=== PATIENT | female | born 1940 | race Caucasian/White ===

== ENCOUNTER 2016-09-23 10:29 | Observation (INO) | payer MEDICARE ==
[~2016-09-23] VITALS: Ht 157.5 cm; Wt 60.0 kg
--- NOTE | 2016-09-23 10:29 | NUR ---
PT TO ROOM 15 VIA STRETCHER BY EMS.
[2016-09-23] MEDS ORDERED: LOSARTAN POT50 MG PO (10:49)
[2016-09-23] MEDS ORDERED: BETAPACE80 MG PO (10:49)
[2016-09-23] MEDS ORDERED: PRAVASTATIN80 MG PO (10:50)
[2016-09-23] MEDS ORDERED: LEVOTHYROXIN25 MC1 PO (10:50)
[2016-09-23] MEDS ORDERED: OMEPRAZOLE10 MG PO (10:51)
[2016-09-23] MEDS ORDERED: METFORMIN500 M2 PO (10:51)
[2016-09-23] MEDS ORDERED: COUMADIN5 MG PO (10:52)
[2016-09-23] MEDS ORDERED: ASPIRIN CHEWABL81 MG PO (10:52)
[2016-09-23] MEDS ORDERED: MAGNESIUM400 MG PO (10:54)
[2016-09-23] MEDS ORDERED: CALCIUM600 M1 PO (10:54)
[2016-09-23] MEDS ORDERED: VITAMIN B-12500 MCG PO (10:55)
[2016-09-23] MEDS ORDERED: MULTI VIT PO (10:55)
[2016-09-23 11:10] LABS: HEMATOCRIT 40.9 % (37.0-47.0); HEMOGLOBIN 12.8 g/dl (12.0-16.0); IMMATURE GRANULOCYTES 0.4 % (0.0-1.0); MEAN CELL VOLUME 91.3 fL CALC (80.0-100.0); MEAN CORPUSCULAR HGB 28.6 pG CALC (26.0-32.0); MEAN CORPUSCULAR HGB CONC 31.3 g/L CALC (32.0-36.0); NEUT# 3.74 thou/uL (2.00-7.15); RED BLOOD COUNT 4.48 mill/uL (4.20-5.60); RED CELL DISTRI WIDTH 15.3 % (11.5-15.5)
--- NOTE | 2016-09-23 11:30 | NUR ---
PATIENT RESTING AWAITING LAB AND RADIOLOGY RESULTS PATIENT DENIES ANY PAIN AT THIS TIME. PATIENT UNABLE TO PROVIDE A URINE SAMPLE
[2016-09-23 11:33] LABS: ALBUMIN 3.9 g/dL (3.2-5.0); ALKALINE PHOSPHATASE 92 u/l (38-126); ANION GAP 19 (6-22 (CALC)); BILIRUBIN, TOTAL 0.4 mg/dL (0.0-1.4); BUN 19 mg/dL (8-23); BUN/CREATININE RATIO 16 (12-20 (CALC)); CALCIUM 9.1 mg/dL (8.4-10.2); CARBON DIOXIDE 22 mmol/l (22-30); CHLORIDE 100 mmol/l (95-108); CREATININE 1.2 mg/dL (0.5-1.0); GFR 44 ML/MIN (>=60 (CALC)); GFR FOR AFR.AMER. 53 ML/MIN (>=60 (CALC)); GLUCOSE 161 mg/dL (82-115); POTASSIUM 4.5 mmol/l (3.5-5.1); SGOT/AST 40 u/l (9-36); SGPT/ALT 33 u/l (11-66); SODIUM 136 mmol/l (137-146)
[2016-09-23 11:52] LABS: MYOGLOBIN 39 ng/mL (0 - 62)
[2016-09-23 12:37] LABS: INTERNATIONAL NORMALIZED RATIO 2.1 RATIO (0.7-1.3); PROTHROMBIN TIME 23.6 SECONDS (9.0-12.5)
--- NOTE | 2016-09-23 12:39 | NUR ---
PATIENT RESTING AWAITNG LAB AND RADIOLOGY RESULTS PATIENT DENIES ANY PAIN AT THIS TIME
--- NOTE | 2016-09-23 13:30 | NUR ---
PATIENT RESTING AWAITNG ROOM ASSIGNMENT PATIENT DENIES ANY PAIN AT THIS TIME
--- NOTE | 2016-09-23 14:08 | NUR ---
REPORT CALLED TO [facility] AND PATIENT TRANSPORTED
--- NOTE | 2016-09-23 14:20 | NUR ---
PT ARRIVED TO FLOOR VIA STRETCHER ACCOMPANIED BY [facility]. PT DENIES PAIN. NO DIZZINESS. AMBULATED TO RESTROOM. TOLERATED ACTIVITY WELL. REPORTING OF CONCERNS ENCOURAGED. PT ORIENTED TO ROOM AND EQUIPMENT. PLAN OF CARE DISCUSSED. CALL LIGHT REVIEWED AND IN REACH. FALL PRECAUTIONS REINFORCED. PT STATE UNDERSTANDING.
[2016-09-23 14:30] VITALS: BP 143/89
[2016-09-23 16:00] VITALS: BP 148/88
--- NOTE | 2016-09-23 17:25 | NUR ---
PT SITTING UPRIGHT IN BED. AT BEDSIDE. DENIES PAIN. NO DIZZINESS. REPORTING OF SYMPTOMS AND CONCERNS ENCOURAGED. PT STATES UNDERSTANDING.
[2016-09-23 19:05] VITALS: BP 137/78
--- NOTE | 2016-09-23 19:19 | NUR ---
BEDSIDE REPORT RECEIVED FROM [facility]. PT UP TO BATHROOM AT THIS TIME. DENIES PAIN AND SHORTNESS OF BREATH. NO DISTRESS NOTED. PLAN OF CARE DISCUSSED. ENCOURAGED TO VERBALIZE CONERNS. PT STATES UNDERSTANDING. SAFETY MEASURES IN PLACE. CALL LIGHT SYSTEM REVIEWED AND IN REACH.
--- NOTE | 2016-09-23 19:19 | NUR ---
BEDSIDE REPORT RECEIVED FROM [facility]. PT UP TO BATHROOM AT THIS TIME. DENIES PAIN AND SHORTNESS OF BREATH. NO DISTRESS NOTED. PLAN OF CARE DISCUSSED. ENCOURAGED TO VERBALIZE CONCERNS. PT STATES UNDERSTANDING. SAFETY MEASURES IN PLACE. CALL LIGHT SYSTEM REVIEWED AND IN REACH.
[2016-09-23 20:44] LABS: URINE BILIRUBIN - DIPSTICK NEGATIVE (NEGATIVE); URINE BLOOD DIPSTICK NEGATIVE (NEGATIVE); URINE CLARITY CLEAR; URINE COLOR YELLOW; URINE GLUCOSE - DIPSTICK NEGATIVE (NEGATIVE); URINE KETONE TRACE mg/dL (NEGATIVE); URINE LEUK ESTERASE TRACE (NEGATIVE); URINE NITRITE - DIPSTICK NEGATIVE (Negative); URINE PH 5.5 (4.5-8.0); URINE PROTEIN - DIPSTICK NEGATIVE (NEG-TRACE); URINE UROBILINOGEN - DIPSTICK 0.2 E.U./dL (0.2)
[2016-09-23 23:10] VITALS: BP 129/79
--- NOTE | 2016-09-24 | NUR ---
PT RESTING IN BED SUPINE. UP AD LANDRY TO VOID. DENIES PAIN. RESPIRATIONS EVEN AND UNLABORED. NO NEEDS AT THIS TIME. IV SITE LOOKS HEALTHY. SAFETY MEASURES IN PLACE. CALL LIGHT WITHIN REACH.
--- NOTE | 2016-09-24 03:59 | NUR ---
PT ASLEEP AT THIS TIME. NO SIGNS OF DISTRESS NOTED AND RESPIRATIONS ARE EVEN AND UNLABORED. IV SITE IS NOW SALINE LOCKED AND IS PATENT. SAFETY MEASURES REMAIN IN PLACE. CALL LIGHT WITHIN REACH.
[2016-09-24 04:59] VITALS: BP 136/80
[2016-09-24 06:20] LABS: HEMATOCRIT 38.7 % (37.0-47.0); HEMOGLOBIN 12.2 g/dl (12.0-16.0); IMMATURE GRANULOCYTES 0.4 % (0.0-1.0); MEAN CELL VOLUME 89.6 fL CALC (80.0-100.0); MEAN CORPUSCULAR HGB 28.2 pG CALC (26.0-32.0); MEAN CORPUSCULAR HGB CONC 31.5 g/L CALC (32.0-36.0); NEUT# 4.98 thou/uL (2.00-7.15); RED BLOOD COUNT 4.32 mill/uL (4.20-5.60)
[2016-09-24 06:37] LABS: INTERNATIONAL NORMALIZED RATIO 2.3 RATIO (0.7-1.3); PROTHROMBIN TIME 27.1 SECONDS (9.0-12.5)
[2016-09-24 06:38] LABS: ANION GAP 14 (6-22 (CALC)); BUN 14 mg/dL (8-23); BUN/CREATININE RATIO 14 (12-20 (CALC)); CALCIUM 8.7 mg/dL (8.4-10.2); CARBON DIOXIDE 25 mmol/l (22-30); CHLORIDE 103 mmol/l (95-108); GFR 54 ML/MIN (>=60 (CALC)); GFR FOR AFR.AMER. > 60 ML/MIN (>=60 (CALC)); GLUCOSE 107 mg/dL (82-115); POTASSIUM 4.6 mmol/l (3.5-5.1); SODIUM 137 mmol/l (137-146)
--- NOTE | 2016-09-24 07:24 | NUR ---
BEDSIDE REPORT RECEIVED FROM MIRELLA KMIBALL. PT DENIES PAIN. NO DIZZINESS REPORTED. FALL PRECAUTIONS REINFORCED. PLAN OF CARE DISCUSSED. REPORTING OF CONCERNS ENCOURAGED. CALL LIGHT REVIEWED AND IN REACH. PT STATES UDNERSTANDING.
[2016-09-24 08:02] VITALS: BP 163/86
[2016-09-24 11:05] VITALS: BP 119/69
--- NOTE | 2016-09-24 12:55 | NUR ---
Discharge instructions given. Patient verbalizes understanding of same. Discharged in stable condition via Wheelchair to Home with spouse. All belongings sent with pt.
== END 2016-09-24 13:00 | disposition home or self-care (01) ==
LOC: ENPENDDIS → ED 10:29 → ED-I 12:32 → ED 13:05 → MS2 13:06
PROVIDERS: Emergency Medicine; ADMIT Internal Medicine; ATTEND Internal Medicine
DX: R55 Syncope and collapse (principal); N17.9 Acute kidney failure, unspecified; E86.0 Dehydration; I48.0 Paroxysmal atrial fibrillation; I10 Essential (primary) hypertension; E11.9 Type 2 diabetes mellitus without complications; E03.9 Hypothyroidism, unspecified; R11.2 Nausea with vomiting, unspecified; R53.1 Weakness; Z79.01 Long term (current) use of anticoagulants; Z79.84 Long term (current) use of oral hypoglycemic drugs

== ENCOUNTER 2016-10-17 16:23 | Emergency (ER) | payer MEDICARE ==
[~2016-10-17] VITALS: Ht 157.5 cm; Wt 71.0 kg
[~2016-10-17 16:23] MED LIST: ASPIRIN CHEWABL81 MG PO; BETAPACE80 MG PO; CALCIUM600 M1 PO; COUMADIN5 MG PO; LEVOTHYROXIN25 MC1 PO; LOSARTAN POT50 MG PO; MAGNESIUM400 MG PO; METFORMIN500 M2 PO; MULTI VIT PO; OMEPRAZOLE10 MG PO; PRAVASTATIN80 MG PO; VITAMIN B-12500 MCG PO
[2016-10-17] MEDS ORDERED: MECLIZINE25 MG PO (16:41)
[2016-10-17 17:20] LABS: HEMATOCRIT 38.7 % (37.0-47.0); HEMOGLOBIN 12.2 g/dl (12.0-16.0); IMMATURE GRANULOCYTES 0.3 % (0.0-1.0); MEAN CELL VOLUME 92.6 fL CALC (80.0-100.0); MEAN CORPUSCULAR HGB 29.2 pG CALC (26.0-32.0); MEAN CORPUSCULAR HGB CONC 31.5 g/L CALC (32.0-36.0); NEUT# 3.91 thou/uL (2.00-7.15); RED BLOOD COUNT 4.18 mill/uL (4.20-5.60); RED CELL DISTRI WIDTH 15.1 % (11.5-15.5)
[2016-10-17 17:30] LABS: ALBUMIN 4.2 g/dL (3.2-5.0); BILIRUBIN, TOTAL 0.3 mg/dL (0.0-1.4); CALCIUM 9.8 mg/dL (8.4-10.2); CREATININE 1.3 mg/dL (0.5-1.0); POTASSIUM 4.5 mmol/l (3.5-5.1); TOTAL PROTEIN 7.7 g/dL (6.3-8.2)
[2016-10-17 17:48] LABS: INTERNATIONAL NORMALIZED RATIO 2.2 RATIO (0.7-1.3); PROTHROMBIN TIME 24.8 SECONDS (9.0-12.5)
[2016-10-17] MEDS ORDERED: ZOFRAN ODT4 MG PO (17:54)
[2016-10-17] MEDS ORDERED: LORTAB 5-325 MG1 TAB PO (17:54)
[2016-10-17 19:01] VITALS: BP 146/77
== END 2016-10-17 19:18 | disposition home or self-care (01) ==
LOC: ED 16:23
PROVIDERS: Emergency Medicine
PROC: 2W6 Placement, Anatomical Regions, Traction (ICD-10-PCS; principal; 2016-10-17)
PROC: 2W3DX1Z Immobilization of Left Lower Arm using Splint (ICD-10-PCS; 2016-10-17)
DX: S52.532A Colles' fracture of left radius, initial encounter for closed fracture (principal); S52.602A Unspecified fracture of lower end of left ulna, initial encounter for closed fracture; W18.39XA Other fall on same level, initial encounter; Y92.008 Other place in unspecified non-institutional (private) residence as the place of occurrence of the external cause

== ENCOUNTER 2017-06-26 04:26 | Emergency (ER) | payer MEDICARE ==
[~2017-06-26] VITALS: Ht 165.1 cm; Wt 72.7 kg
[~2017-06-26 04:26] MED LIST changes: +BETAPACE120 MG PO; -BETAPACE80 MG PO; +LORTAB 5-325 MG1 TAB PO; +MECLIZINE25 MG PO; +ZOFRAN ODT4 MG PO
[2017-06-26] MEDS ORDERED: WARFARIN5 MG PO (04:42)
[2017-06-26 04:56] LABS: HEMATOCRIT 41.9 % (37.0-47.0); HEMOGLOBIN 13.7 g/dl (12.0-16.0); IMMATURE GRANULOCYTES 0.2 % (0.0-1.0); MEAN CELL VOLUME 93.9 fL CALC (80.0-100.0); MEAN CORPUSCULAR HGB 30.7 pG CALC (26.0-32.0); MEAN CORPUSCULAR HGB CONC 32.7 g/L CALC (32.0-36.0); NEUT# 7.86 thou/uL (2.00-7.15); RED BLOOD COUNT 4.46 mill/uL (4.20-5.60); RED CELL DISTRI WIDTH 14.8 % (11.5-15.5)
[2017-06-26 05:03] LABS: ALBUMIN 4.2 g/dL (3.2-5.0); BILIRUBIN, TOTAL 0.6 mg/dL (0.0-1.4); CALCIUM 9.4 mg/dL (8.4-10.2); CREATININE 1.2 mg/dL (0.5-1.0); POTASSIUM 4.8 mmol/l (3.5-5.1); TOTAL PROTEIN 7.3 g/dL (6.3-8.2)
[2017-06-26 05:08] LABS: INTERNATIONAL NORMALIZED RATIO 3.4 RATIO (0.7-1.3); PROTHROMBIN TIME 39.2 SECONDS (9.0-12.5)
[2017-06-26 11:10] VITALS: BP 141/73
== END 2017-06-26 11:10 | disposition short-term general hospital (02) ==
LOC: ED 04:26
PROVIDERS: Emergency Medicine
DX: I47.1 Supraventricular tachycardia (principal); I48.91 Unspecified atrial fibrillation; I10 Essential (primary) hypertension; E11.9 Type 2 diabetes mellitus without complications; E03.9 Hypothyroidism, unspecified; R74.8 Abnormal levels of other serum enzymes; Z79.01 Long term (current) use of anticoagulants
CPT/HCPCS: J1160

== ENCOUNTER 2018-04-30 11:13 | Inpatient (IN) | payer MEDICARE ==
[2018-04-30] VITALS (19 sets, daily range): BP systolic 116–159; BP diastolic 60–87
[~2018-04-30] VITALS: Ht 165.1 cm; Wt 80.4 kg
[~2018-04-30 11:13] MED LIST changes: +WARFARIN5 MG PO
[2018-04-30 12:14] LABS: HEMATOCRIT 40.7 % (37.0-47.0); IMMATURE GRANULOCYTES 0.3 % (0.0-5.0); MEAN CELL VOLUME 97.6 fL CALC (80.0-100.0); MEAN CORPUSCULAR HGB 31.2 pG CALC (26.0-32.0); MEAN CORPUSCULAR HGB CONC 31.9 g/L CALC (32.0-36.0); NEUT# 4.88 thou/uL (2.00-7.15); RED BLOOD COUNT 4.17 mill/uL (4.20-5.60); RED CELL DISTRI WIDTH 14.6 % (11.5-15.5)
[2018-04-30 12:34] LABS: ALBUMIN 3.9 g/dL (3.2-5.0); BILIRUBIN, TOTAL 0.4 mg/dL (0.0-1.4); CHOLESTEROL HDL RATIO 2.5 (<4.4 (CALC)); CREATININE 1.2 mg/dL (0.5-1.0); TOTAL PROTEIN 6.9 g/dL (6.3-8.2)
[2018-04-30 12:48] LABS: INTERNATIONAL NORMALIZED RATIO 1.8 RATIO (0.7-1.3); PROTHROMBIN TIME 18.9 SECONDS (9.0-12.5)
[2018-04-30 13:04] LABS: TSH, 3RD GENERATION 6.64 uIU/mL (0.47 - 4.68)
[2018-04-30 13:14] LABS: URINE BILIRUBIN - DIPSTICK NEGATIVE (NEGATIVE); URINE BLOOD DIPSTICK NEGATIVE (NEGATIVE); URINE COLOR YELLOW; URINE GLUCOSE - DIPSTICK NEGATIVE (NEGATIVE); URINE KETONE NEGATIVE (NEGATIVE); URINE NITRITE - DIPSTICK NEGATIVE (Negative); URINE PH 7.5 (4.5-8.0); URINE PROTEIN - DIPSTICK NEGATIVE (NEG-TRACE); URINE UROBILINOGEN - DIPSTICK 0.2 E.U./dL (0.2)
[2018-04-30 13:17] LABS: URINE CLARITY SL CLOUDY; URINE LEUK ESTERASE TRACE (Negative)
[2018-04-30] MEDS ORDERED: LEVEMIR FL100 UNIT/M SC (13:41)
[2018-05-01] VITALS (18 sets, daily range): BP systolic 103–150; BP diastolic 57–98
[2018-05-01 05:36] LABS: ALBUMIN 3.5 g/dL (3.2-5.0); BILIRUBIN, TOTAL 0.3 mg/dL (0.0-1.4); CREATININE 1.1 mg/dL (0.5-1.0); MAGNESIUM 1.9 mg/dL (1.6-2.3); POTASSIUM 4.8 mmol/l (3.5-5.1); TOTAL PROTEIN 6.3 g/dL (6.3-8.2)
[2018-05-01 05:37] LABS: HEMATOCRIT 41.4 % (37.0-47.0); HEMOGLOBIN 13.2 g/dl (12.0-16.0); IMMATURE GRANULOCYTES 0.3 % (0.0-5.0); MEAN CELL VOLUME 98.1 fL CALC (80.0-100.0); MEAN CORPUSCULAR HGB 31.3 pG CALC (26.0-32.0); MEAN CORPUSCULAR HGB CONC 31.9 g/L CALC (32.0-36.0); NEUT# 4.03 thou/uL (2.00-7.15); RED BLOOD COUNT 4.22 mill/uL (4.20-5.60); RED CELL DISTRI WIDTH 14.6 % (11.5-15.5)
[2018-05-01 07:37] LABS: PROTHROMBIN TIME 20.7 SECONDS (9.0-12.5)
[2018-05-02 00:19] VITALS: BP 103/55
[2018-05-02 02:00] VITALS: BP 137/67
[2018-05-02 04:00] VITALS: BP 140/81
[2018-05-02 05:33] LABS: HEMATOCRIT 41.7 % (37.0-47.0); HEMOGLOBIN 13.4 g/dl (12.0-16.0); IMMATURE GRANULOCYTES 0.2 % (0.0-5.0); MEAN CELL VOLUME 97.4 fL CALC (80.0-100.0); MEAN CORPUSCULAR HGB 31.3 pG CALC (26.0-32.0); MEAN CORPUSCULAR HGB CONC 32.1 g/L CALC (32.0-36.0); NEUT# 3.41 thou/uL (2.00-7.15); RED BLOOD COUNT 4.28 mill/uL (4.20-5.60); RED CELL DISTRI WIDTH 14.5 % (11.5-15.5)
[2018-05-02 05:44] LABS: PROTHROMBIN TIME 20.7 SECONDS (9.0-12.5)
[2018-05-02 05:45] LABS: ALBUMIN 3.6 g/dL (3.2-5.0); BILIRUBIN, TOTAL 0.3 mg/dL (0.0-1.4); CREATININE 1.2 mg/dL (0.5-1.0); TOTAL PROTEIN 6.4 g/dL (6.3-8.2)
[2018-05-02 07:30] VITALS: BP 138/75
[2018-05-02 08:44] VITALS: BP 140/81
== END 2018-05-02 12:00 | disposition home or self-care (01) | DRG 204 ==
LOC: ICU 11:13
PROVIDERS: Internal Medicine Nephrology; ADMIT Internal Medicine; ATTEND Internal Medicine Nephrology
DX: R06.02 Shortness of breath (principal); G25.1 Drug-induced tremor; R00.0 Tachycardia, unspecified; T46.2X5A Adverse effect of other antidysrhythmic drugs, initial encounter; I48.0 Paroxysmal atrial fibrillation; E11.22 Type 2 diabetes mellitus with diabetic chronic kidney disease; I12.9 Hypertensive chronic kidney disease with stage 1 through stage 4 chronic kidney disease, or unspecified chronic kidney disease; N18.3 Chronic kidney disease, stage 3 (moderate); E11.649 Type 2 diabetes mellitus with hypoglycemia without coma; E78.5 Hyperlipidemia, unspecified; E03.9 Hypothyroidism, unspecified; K21.9 Gastro-esophageal reflux disease without esophagitis; G47.33 Obstructive sleep apnea (adult) (pediatric); I25.10 Atherosclerotic heart disease of native coronary artery without angina pectoris; Z95.828 Presence of other vascular implants and grafts; Z79.4 Long term (current) use of insulin; Z79.01 Long term (current) use of anticoagulants

== ENCOUNTER 2018-07-26 21:00 | Inpatient (IN) | payer MEDICARE ==
[~2018-07-26] VITALS: Ht 165.1 cm; Wt 77.7 kg
[~2018-07-26 21:00] MED LIST changes: +LEVEMIR FL100 UNIT/M SC
[2018-07-26 21:45] LABS: HEMATOCRIT 43.4 % (37.0-47.0); HEMOGLOBIN 14.1 g/dl (12.0-16.0); IMMATURE GRANULOCYTES 0.3 % (0.0-5.0); MEAN CELL VOLUME 95.8 fL CALC (80.0-100.0); MEAN CORPUSCULAR HGB 31.1 pG CALC (26.0-32.0); MEAN CORPUSCULAR HGB CONC 32.5 g/L CALC (32.0-36.0); NEUT# 3.87 thou/uL (2.00-7.15); RED BLOOD COUNT 4.53 mill/uL (4.20-5.60); RED CELL DISTRI WIDTH 13.7 % (11.5-15.5)
[2018-07-26 22:02] LABS: ALBUMIN 4.4 g/dL (3.2-5.0); ALKALINE PHOSPHATASE 90 u/l (38-126); ANION GAP 15 (6-22 (CALC)); BILIRUBIN, TOTAL 0.3 mg/dL (0.0-1.4); BUN 22 mg/dL (8-23); BUN/CREATININE RATIO 21 (12-20 (CALC)); CARBON DIOXIDE 25 mmol/l (22-30); CHLORIDE 104 mmol/l (95-108); GFR 54 ML/MIN (>=60 (CALC)); GFR FOR AFR.AMER. > 60 ML/MIN (>=60 (CALC)); POTASSIUM 4.4 mmol/l (3.5-5.1); SGOT/AST 31 u/l (9-36); SODIUM 139 mmol/l (137-146); TOTAL PROTEIN 7.5 g/dL (6.3-8.2)
[2018-07-26 22:14] LABS: INTERNATIONAL NORMALIZED RATIO 2.5 RATIO (0.7-1.3); MYOGLOBIN 31 ng/mL (0 - 62); PROTHROMBIN TIME 26.3 SECONDS (9.0-12.5)
[2018-07-26] MEDS ORDERED: SOTALOL AF80 MG PO (23:15)
[2018-07-27] VITALS (14 sets, daily range): BP systolic 108–171; BP diastolic 65–84
[2018-07-27 03:57] LABS: URINE BILIRUBIN - DIPSTICK NEGATIVE (NEGATIVE); URINE BLOOD DIPSTICK NEGATIVE (NEGATIVE); URINE COLOR YELLOW; URINE GLUCOSE - DIPSTICK NEGATIVE (NEGATIVE); URINE KETONE NEGATIVE (NEGATIVE); URINE LEUK ESTERASE TRACE (NEGATIVE); URINE NITRITE - DIPSTICK NEGATIVE (Negative); URINE PROTEIN - DIPSTICK NEGATIVE (NEG-TRACE); URINE UROBILINOGEN - DIPSTICK 0.2 E.U./dL (0.2)
[2018-07-27 06:13] LABS: CHOLESTEROL HDL RATIO 3.3 (<4.4 (CALC)); MAGNESIUM 1.7 mg/dL (1.6-2.3)
== END 2018-07-27 11:08 | disposition home or self-care (01) | DRG 310 ==
LOC: ED 21:00 → ED-I 22:24 → ED 22:41 → ICU 22:42
PROVIDERS: Emergency Medicine; ADMIT Internal Medicine; ATTEND Internal Medicine
DX: I48.0 Paroxysmal atrial fibrillation (principal); E11.9 Type 2 diabetes mellitus without complications; I10 Essential (primary) hypertension; I25.10 Atherosclerotic heart disease of native coronary artery without angina pectoris; E78.5 Hyperlipidemia, unspecified; D63.8 Anemia in other chronic diseases classified elsewhere; E53.8 Deficiency of other specified B group vitamins; Z79.01 Long term (current) use of anticoagulants